=== PATIENT | female | born 1985 | race Caucasian/White ===

== ENCOUNTER 2020-03-27 11:51 | Emergency (ER) | payer SELFPAY ==
[~2020-03-27] VITALS: Ht 167.6 cm; Wt 60.5 kg
[~2020-03-27 11:51] MED LIST: NITR100C62 PO; OMEP20CA5 PO; TRAM50TA PO
--- NOTE | 2020-03-27 12:31 | PHYS DOC ---
Past History Past Medical History: No Pertinent History Past Surgical History: Cholecystectomy, Tubal ligation Alcohol Use: None Drug Use: None General Adult EDM: Chief Complaint: ABDOMINAL PAIN HPI: HPI: History from patient. Patient is a 35-year-old female with a history of tubal ligation and cholecystectomy who presents with complaint of right lower quadrant abdominal discomfort. States the pain started in her umbilical pain 5 days ago. States pain began gradually. She does have abdominal distention. Notes normal stools. Denies vaginal bleeding or discharge. Denies any urinary symptoms. States the pain seems to be located in her umbilical region right lower quadrant at this time. States pain is sharp in nature. States it is intermittent. Denies any exacerbating or alleviating factors. Does note nausea developing today without vomiting. Denies any history of ovarian cancer or tumors. Denies any vaginal bleeding or discharge. States first day of last period was 2 weeks ago. Denies history of colonoscopy. No other complaints. Review of Systems: Review of Systems: Constitutional: Denies fever or chills Eyes: Denies change in visual acuity HENT: Denies nasal congestion or sore throat Respiratory: Denies cough or shortness of breath Cardiovascular: Denies chest pain or edema GI: Positive for abdominal pain no nausea : Denies dysuria Musculoskeletal: Denies back pain or joint pain Integument: Denies rash Neurologic: Denies headache, focal weakness or sensory changes Endocrine: Denies polyuria or polydipsia Lymphatic: Denies swollen glands Psychiatric: Denies depression or anxiety Allergies: Allergies: Allergies Coded Allergies Type Severity Reaction Last Updated Verified No Known Drug Allergies 08/19/15 No Physical Exam: PE: Constitutional: Well developed, well nourished, no acute distress, non-toxic appearance. [] HENT: Normocephalic, atraumatic, bilateral external ears normal, oropharynx moist, no oral exudates, nose normal. [] Eyes: PERRLA, EOMI, conjunctiva normal, no discharge. [] Neck: Normal range of motion, no tenderness, supple, no stridor. [] Cardiovascular:Heart rate regular rhythm, no murmur [] Lungs & Thorax: Bilateral breath sounds clear to auscultation [] Abdomen: Involuntary guarding noted on palpation of the right lower quadrant. Palpable mass noted. No rigidity appreciated. Skin: Warm, dry, no erythema, no rash. [] Back: No tenderness, no CVA tenderness. [] Extremities: No tenderness, no cyanosis, no clubbing, ROM intact, no edema. [] Neurologic: Alert and oriented X 3, normal motor function, normal sensory function, no focal deficits noted. [] Psychologic: Affect normal, judgement normal, mood normal. [] Current Patient Data: Labs: Laboratory Tests Test 03/27/20 12:32 03/27/20 12:51 03/27/20 12:53 White Blood Count 5.8 x10^3/uL Red Blood Count 4.86 x10^6/uL Hemoglobin 13.2 g/dL Hematocrit 40.2 % Mean Corpuscular Volume 83 fL Mean Corpuscular Hemoglobin 27 pg Mean Corpuscular Hemoglobin Concent 33 g/dL Red Cell Distribution Width 13.4 % Platelet Count 208 x10^3/uL Neutrophils (%) (Auto) 76 % Lymphocytes (%) (Auto) 15 % Monocytes (%) (Auto) 7 % Eosinophils (%) (Auto) 1 % Basophils (%) (Auto) 1 % Neutrophils # (Auto) 4.4 x10^3uL Lymphocytes # (Auto) 0.9 x10^3/uL Monocytes # (Auto) 0.4 x10^3/uL Eosinophils # (Auto) 0.0 x10^3/uL Basophils # (Auto) 0.0 x10^3/uL Sodium Level 135 mmol/L Potassium Level 3.8 mmol/L Chloride Level 102 mmol/L Carbon Dioxide Level 26 mmol/L Anion Gap 7 Blood Urea Nitrogen 11 mg/dL Creatinine 0.7 mg/dL Estimated GFR (Cockcroft-Gault) 95.2 BUN/Creatinine Ratio 16 Glucose Level 97 mg/dL Calcium Level 8.7 mg/dL Total Bilirubin 0.5 mg/dL Aspartate Amino Transf (AST/SGOT) 23 U/L Alanine Aminotransferase (ALT/SGPT) 26 U/L Alkaline Phosphatase 100 U/L Total Protein 7.1 g/dL Albumin 3.2 g/dL Albumin/Globulin Ratio 0.8 Lipase 75 U/L Urine Collection Type Void Urine Color Yellow Urine Clarity Clear Urine pH 6.0 Urine Specific Friendly >=1.030 Urine Protein 30 mg/dl Urine Glucose (UA) Neg mg/dL Urine Ketones (Stick) 15 mg/dL Urine Blood Neg Urine Nitrite Pos Urine Bilirubin Neg Urine Urobilinogen Dipstick 1.0 mg/dL Urine Leukocyte Esterase Neg Bedside Urine HCG, Qualitative hcg negative Current Medications Medications (Trade) Dose Ordered Sig/Tiffany Route PRN Reason Start Time Stop Time Status Last Admin Dose Admin Metoclopramide HCl (Reglan Vial) 10 mg 1X ONCE IVP 03/27/20 12:45 03/27/20 12:46 DC 03/27/20 12:47 Morphine Sulfate (Morphine 4mg Syringe) 4 mg 1X ONCE IV 03/27/20 12:45 03/27/20 12:46 DC 03/27/20 12:48 Iohexol (Omnipaque 300 Mg/ml) 75 ml 1X ONCE IV 03/27/20 13:15 03/27/20 13:16 DC 03/27/20 13:40 Info (Do NOT chart on this entry -- for MONITORING) 1 each PRN DAILY PRN MC SEE COMMENTS 03/27/20 13:15 03/29/20 13:14 Cefazolin Sodium 1 gm/Sodium Chloride 50 ml @ 100 mls/hr 1X ONCE IV 03/27/20 14:00 03/27/20 14:29 DC 03/27/20 13:56 Sodium Chloride 50 ml @ As Directed STK-MED ONCE .ROUTE 03/27/20 13:51 03/27/20 13:52 DC Cefazolin Sodium (Ancef) 1 gm STK-MED ONCE .ROUTE 03/27/20 13:51 03/27/20 13:52 DC Vital Signs: Vital Signs Date Time Temp Pulse Resp B/P (MAP) Pulse Ox O2 Delivery O2 Flow Rate FiO2 03/27/20 12:12 98.2 89 18 129/84 (99) 98 Room Air EKG: EKG: [] Radiology/Procedures: Radiology/Procedures: [address] [address] IMAGING REPORT Signed PATIENT: RIVAS HOYOS ACCOUNT: [id number] : 1985 LOCATION: ER AGE: 35 SEX: F EXAM STATUS: REG ER ORD. PHYSICIAN: GARY MOJICA DO REASON: RLQ pain PROCEDURE: CT CHEST ABD PELVIS W/CONTRAST CT chest, abdomen and pelvis with contrast PQRS statement: CT scans at this facility use dose reduction including either automated exposure control, iterative reconstructions, and /or weight based radiation dosing via mA and kV modification when appropriate to reduce radiation dose to as low as reasonably achievable. Contrast: 80 mL Isovue-370 intravenous contrast HISTORY: Right lower quadrant abdominal pain. Chest findings: Mild residual thymus gland density anterior mediastinum. Heart size normal. Aorta, pulmonary vessels and esophagus are unremarkable. No enlarged adenopathy in the chest. Small dependent pleural effusions lung bases. Trachea and bronchi are unremarkable. Mild dependent lower lobe atelectasis and mild volume loss from the pleural effusions. No pulmonary consolidation. Bones are unremarkable. Abdomen findings: Mild dilation of the bile ducts typical after cholecystectomy. There is a 1 cm ill-defined hypodense lesion left hepatic lobe image 16 which is stable favoring a benign lesion most likely a hemangioma given stability. Similar hypodense lesion liver dome too small to characterize favoring benign lesions which are stable likely hemangiomas. Spleen, pancreas, adrenal glands and kidneys are unremarkable. Massive complex abdominal and pelvic adnexal mass with numerous internal septations and density from areas of hyperdense fluid or solid tumor components, measures 27 cm craniocaudal by 23 cm transverse by 13 cm AP, which displaces and compresses bowel loops within the abdomen as well as compresses the aorta and IVC along the spine. Large volume of stool likely constipation. Appendix is not visualized likely obscured by collapse surrounding bowel loops. There is a small volume of pelvic free fluid at the right paracolic gutter and at the lower quadrants surrounding the adnexal mass. No adenopathy. Pelvis findings: Fallopian tube ligation clips. No normal right ovary evident likely replaced by the large mass. At the left ovary there is a 1.5 cm ring-enhancing lesion. There is mild pelvic free fluid. Bladder collapsed. Retroverted uterus. Rectum and bones are unremarkable. IMPRESSION: 1. 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 There is a small volume of free fluid at the pelvis and at the right lower quadrant abdomen, at the paracolic gutter and underlying the right diaphragm which could be reactive free fluid or could indicate mild fluid from early peritoneal metastatic disease, although no peritoneal masses or nodules are evident. See above. 2. Small pleural effusions. 3. 1.5 cm ring-enhancing lesion of the left ovary. Electronically signed by: Stevie Dick MD (03/27/2020 2:19 PM) [id number] DICTATED AND SIGNED BY: STEVIE DICK MD DATE: 03/27/20 1419 CC: AILYN RODGERS; GARY MOJICA DO ~MTH0 0 [] Heart Score: Risk Factors: Risk Factors: DM, Current or recent (<one month) smoker, HTN, HLP, family history of CAD, obesity. Risk Scores: Score 0 - 3: 2.5% MACE over next 6 weeks - Discharge Home Score 4 - 6: 20.3% MACE over next 6 weeks - Admit for Clinical Observation Score 7 - 10: 72.7% MACE over next 6 weeks - Early Invasive Strategies Course & Med Decision Making: Course & Med Decision Making Pertinent Labs and Imaging studies reviewed. (See chart for details) [] Patient is a 35-year-old female who presents with chief complaint abdominal pain and distention. Distal vital signs unremarkable. Palpable mass noted on exam particularly in the right lower quadrant. CAT scan imaging reveals a large masslike structure measuring approximate 23 cm x 23 cm. Presumed origin of the right ovary. Unclear whether is malignancy versus cyst. Per chart review patient did have an ultrasound 2015 where she did have a cystic lesion identified to her right ovary measuring 7 x 7 cm. She did not receive notification follow-up at that time she states. Patient has remained hemodynamically stable. Labs are unremarkable. Fortunately we do not have gynecologic oncologic services at our facility. She will require transfer for further evaluation. I did discuss case with Dr. Wilson's who is excepted the patient at [facility]. Daniel Disclaimer: Daniel Disclaimer: This electronic medical record was generated, in whole or in part, using a voice recognition dictation system. Departure Departure: Impression: Primary Impression: Abdominal mass, right lower quadrant Disposition: 02 DC/TRF OTHER SHORT TERM HOS Condition: STABLE Referrals: PCPAILYN (PCP) GARY MOJICA DO Mar 27, 2020 12:31
[2020-03-27] MEDS ORDERED: METOCLOPRAMIDE HCL 10 MG/2 ML VIAL. IVP ONE (12:45)
[2020-03-27] MEDS ORDERED: MORPHINE SULFATE 4 MG/ML DISP.SYRIN. IV ONE (12:45)
[2020-03-27 12:53] LABS: BASO % 1 % (0-3); EOS % 1 % (0-3); HEMATOCRIT 40.2 % (36.0-47.0); HEMOGLOBIN 13.2 g/dL (12.0-15.5); LYMPH # 0.9 x10^3/uL (1.0-4.8); LYMPH % 15 % (24-48); MEAN CORPUSCULAR HEMOGLOBIN 27 pg (25-35); MEAN CORPUSCULAR HGB CONC 33 g/dL (31-37); MEAN CORPUSCULAR VOLUME 83 fL (79-100); MONO # 0.4 x10^3/uL (0.0-1.1); MONO % 7 % (0-9); NEUT # 4.4 x10^3uL (1.8-7.7); NEUT % 76 % (31-73); PLATELET COUNT 208 x10^3/uL (140-400); RED BLOOD COUNT 4.86 x10^6/uL (3.50-5.40); RED CELL DISTRIBUTION WIDTH 13.4 % (11.5-14.5); WHITE BLOOD COUNT 5.8 x10^3/uL (4.0-11.0)
[2020-03-27 13:09] LABS: CALCIUM 8.7 mg/dL (8.5-10.1); CREATININE 0.7 mg/dL (0.6-1.0); GFR 95.2; POTASSIUM 3.8 mmol/L (3.5-5.1)
[2020-03-27 13:14] LABS: ALBUMIN 3.2 g/dL (3.4-5.0); ALBUMIN/GLOBULIN RATIO 0.8 (1.0-1.7); TOTAL BILIRUBIN 0.5 mg/dL (0.2-1.0); TOTAL PROTEIN 7.1 g/dL (6.4-8.2)
[2020-03-27] MEDS ORDERED: IOHEXOL 300 MG/ML 75 ML VIAL. IV ONE (13:15)
[2020-03-27] MEDS ORDERED: CONTRAST GIVEN. MC PRN (13:15)
[2020-03-27 13:45] LABS: BILIRUBIN,URINE NEG (NEG); CLARITY,URINE CLEAR; COLOR,URINE YELLOW; GLUCOSE,URINE NEG (NEG); NITRITE,URINE POS (NEG)
[2020-03-27] MEDS ORDERED: ceFAZolin SODIUM 1 GM VIAL ONE (13:51)
[2020-03-27] MEDS ORDERED: IV NORMAL SALINE 50ML 50 ML ONE (13:51)
--- NOTE | 2020-03-27 14:22 | RAD ---
CT chest, abdomen and pelvis with contrast PQRS statement: CT scans at this facility use dose reduction including either automated exposure control, iterative reconstructions, and /or weight based radiation dosing via mA and kV modification when appropriate to reduce radiation dose to as low as reasonably achievable. Contrast: 80 mL Isovue-370 intravenous contrast HISTORY: Right lower quadrant abdominal pain. Chest findings: Mild residual thymus gland density anterior mediastinum. Heart size normal. Aorta, pulmonary vessels and esophagus are unremarkable. No enlarged adenopathy in the chest. Small dependent pleural effusions lung bases. Trachea and bronchi are unremarkable. Mild dependent lower lobe atelectasis and mild volume loss from the pleural effusions. No pulmonary consolidation. Bones are unremarkable. Abdomen findings: Mild dilation of the bile ducts typical after cholecystectomy. There is a 1 cm ill-defined hypodense lesion left hepatic lobe image 16 which is stable favoring a benign lesion most likely a hemangioma given stability. Similar hypodense lesion liver dome too small to characterize favoring benign lesions which are stable likely hemangiomas. Spleen, pancreas, adrenal glands and kidneys are unremarkable. Massive complex abdominal and pelvic adnexal mass with numerous internal septations and density from areas of hyperdense fluid or solid tumor components, measures 27 cm craniocaudal by 23 cm transverse by 13 cm AP, which displaces and compresses bowel loops within the abdomen as well as compresses the aorta and IVC along the spine. Large volume of stool likely constipation. Appendix is not visualized likely obscured by collapse surrounding bowel loops. There is a small volume of pelvic free fluid at the right paracolic gutter and at the lower quadrants surrounding the adnexal mass. No adenopathy. Pelvis findings: Fallopian tube ligation clips. No normal right ovary evident likely replaced by the large mass. At the left ovary there is a 1.5 cm ring-enhancing lesion. There is mild pelvic free fluid. Bladder collapsed. Retroverted uterus. Rectum and bones are unremarkable. IMPRESSION: 1. 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 There is a small volume of free fluid at the pelvis and at the right lower quadrant abdomen, at the paracolic gutter and underlying the right diaphragm which could be reactive free fluid or could indicate mild fluid from early peritoneal metastatic disease, although no peritoneal masses or nodules are evident. See above. 2. Small pleural effusions. 3. 1.5 cm ring-enhancing lesion of the left ovary. Electronically signed by: Santos Dick MD (03/27/2020 2:19 PM) [id number]
[2020-03-27 16:45] VITALS: BP 125/74
[2020-03-27] MEDS ORDERED: ONDANSETRON PF 4 MG/2 ML VIAL. IVP ONE (17:30)
[2020-03-27] MEDS ORDERED: MORPHINE SULFATE 4 MG/ML DISP.SYRIN. IV PRN (17:30)
[2020-03-27] MEDS ORDERED: ONDANSETRON PF 4 MG/2 ML VIAL. ONE (17:33)
[2020-03-27] MEDS ORDERED: MORPHINE SULFATE 4 MG/ML DISP.SYRIN. ONE (17:33)
== END 2020-03-27 18:33 | disposition short-term general hospital (02) ==
LOC: ER 11:51
DX: R10.31 Right lower quadrant pain (principal); R14.0 Abdominal distension (gaseous); Z98.51 Tubal ligation status; Z90.49 Acquired absence of other specified parts of digestive tract
CPT/HCPCS: 36415; 71260; 74177; 80053; 81003; 81025; 83690; 85025; 96365; 96375; 99285; J0690; J2270; J2405; J2765; Q9967

== ENCOUNTER 2020-05-22 12:05 | Emergency (ER) | payer SELFPAY ==
[~2020-05-22] VITALS: Ht 167.6 cm; Wt 65.0 kg
--- NOTE | 2020-05-22 12:18 | PHYS DOC ---
Past History Past Medical History: No Pertinent History Past Surgical History: Cholecystectomy, Tubal ligation Alcohol Use: None Drug Use: None Adult General Chief Complaint Chief Complaint: ABDOMINAL PAIN [facility] HPI Patient is a 35-year-old female presents emergency department complaining of low pelvic pain and vaginal pain after sex 30 minutes prior to arrival. Patient states she did not have rough sex. Patient rates her pain a 10/10 pain on a 1- 10 pain scale. Patient states she had a abdominal hysterectomy on 03/29/2020 at [facility] related to an ovarian cyst. Patient reports vaginal bleeding however has not soaked any OB pads yet. Patient complains of nausea. Denies vomiting or diarrhea or constipation. Patient states she was put on a lift restriction for 4 weeks however denies being put on a refrain from sex restriction. Patient states she has had a cholecystectomy and a tubal ligation in the past. She denies any other surgeries, denies taking prescription or [id number] medications at home, denies allergies to medications. Patient denies any other physical complaints or physical concerns. Patient is cigarette smoker, denies alcohol abuse, denies illicit drug use. Review of Systems Review of Systems 14 body systems of review of systems have been reviewed. See HPI for pertinent positives and negative responses, otherwise all other systems are negative, nonpertinent or noncontributory. Allergies Allergies Allergies Coded Allergies Type Severity Reaction Last Updated Verified No Known Drug Allergies 08/19/15 No Physical Exam Physical Exam Constitutional: Well developed, well nourished, no acute distress, non-toxic appearance. HENT: Normocephalic, atraumatic, bilateral external ears normal, oropharynx moist, no oral exudates, nose normal. Eyes: PERRLA, EOMI, conjunctiva normal, no discharge. Neck: Normal range of motion, no tenderness, supple, no stridor. Cardiovascular:Heart rate regular rhythm, no murmur, heart sounds S1-S2 no auscultation. Lungs & Thorax: Bilateral breath sounds clear to auscultation, all lung marrero consultation. Abdomen: Bowel sounds normal, soft, no masses, no pulsatile masses. Midline abdominal surgical scar without signs of infectious process. Pain to palpation low pelvic region. Skin: Warm, dry, no erythema, no rash. Back: No tenderness, no CVA tenderness. Extremities: No tenderness, no cyanosis, no clubbing, ROM intact, no edema. Neurologic: Alert and oriented X 3, normal motor function, normal sensory function, no focal deficits noted. Psychologic: Affect normal, judgement normal, mood normal. : External pelvic exam within normal limits, no lesions appreciated no swelling noted. Speculum exam noted approximately 20 cc serosanguineous fluid with moderate sized clot which was removed with several OB vaginal swabs revealing a vaginal cuff tear with approximately 2.0 cm x 0.5 cm tear with blood clot at opening. Bimanual examination deferred Current Patient Data Lab Results Laboratory Tests Test 05/22/20 13:00 White Blood Count 7.8 x10^3/uL Red Blood Count 5.11 x10^6/uL Hemoglobin 13.4 g/dL Hematocrit 41.0 % Mean Corpuscular Volume 80 fL Mean Corpuscular Hemoglobin 26 pg Mean Corpuscular Hemoglobin Concent 33 g/dL Red Cell Distribution Width 14.4 % Platelet Count 161 x10^3/uL Neutrophils (%) (Auto) 83 % Lymphocytes (%) (Auto) 13 % Monocytes (%) (Auto) 3 % Eosinophils (%) (Auto) 1 % Basophils (%) (Auto) 1 % Neutrophils # (Auto) 6.5 x10^3uL Lymphocytes # (Auto) 1.0 x10^3/uL Monocytes # (Auto) 0.2 x10^3/uL Eosinophils # (Auto) 0.1 x10^3/uL Basophils # (Auto) 0.0 x10^3/uL Sodium Level 138 mmol/L Potassium Level 3.8 mmol/L Chloride Level 105 mmol/L Carbon Dioxide Level 24 mmol/L Anion Gap 9 Blood Urea Nitrogen 13 mg/dL Creatinine 0.6 mg/dL Estimated GFR (Cockcroft-Gault) 113.8 BUN/Creatinine Ratio 22 Glucose Level 104 mg/dL Calcium Level 8.1 mg/dL Total Bilirubin 0.3 mg/dL Aspartate Amino Transf (AST/SGOT) 12 U/L Alanine Aminotransferase (ALT/SGPT) 15 U/L Alkaline Phosphatase 52 U/L Total Protein 6.5 g/dL Albumin 3.3 g/dL Albumin/Globulin Ratio 1.0 Current Medications Medications (Trade) Dose Ordered Sig/Tiffany Route PRN Reason Start Time Stop Time Status Last Admin Dose Admin Sodium Chloride 1,000 ml @ 1,000 mls/hr 1X ONCE IV 05/22/20 12:30 05/22/20 13:29 DC 05/22/20 12:37 Fentanyl Citrate (Fentanyl 2ml Vial) 50 mcg 1X ONCE IVP 05/22/20 12:30 05/22/20 12:31 DC 05/22/20 12:38 Ondansetron HCl (Zofran) 4 mg 1X ONCE IVP 05/22/20 12:45 05/22/20 12:52 DC 05/22/20 12:46 Ondansetron HCl (Zofran) 4 mg STK-MED ONCE .ROUTE 05/22/20 12:44 05/22/20 12:44 DC Fentanyl Citrate (Fentanyl 2ml Vial) 50 mcg 1X ONCE IVP 05/22/20 13:30 05/22/20 13:34 DC 05/22/20 13:35 EKG EKG [] Radiology/Procedures Radiology/Procedures [] Heart Score Risk Factors: Risk Factors: DM, Current or recent (<one month) smoker, HTN, HLP, family history of CAD, obesity. Risk Scores: Risk Factors: DM, Current or recent (<one month) smoker, HTN, HLP, family history of CAD, obesity. Course & Med Decision Making Course & Med Decision Making Pertinent Labs and Imaging studies reviewed. (See chart for details) 35-year-old female, vital signs reviewed, presented to the emergency department approximately 30 minutes after vaginal sex with a complaint of vaginal bleeding. With patient recent history of abdominal hysterectomy on 03/29/2020, ED work- up started. Saline lock, CBC, CMP, 1 L normal saline, 50 mcg fentanyl IV for a 10/10 pain, 4 mg IV Zofran for nausea. Patient was given an additional 50 mcg of fentanyl IV for a 7/10 pain. Vaginal speculum exam revealed tear at vaginal cuff. Related to patient's recent surgery at [facility] by [facility] Dr. Cathi Jama, [facility] transfer center was contacted for patient transfer and evaluation by [employer] specialist. Transfer center sales team leader stated either OB specialist or hospitalist will return call soon. Time is currently 1330. At 1435 contacted [facility] transfer center, patient will be transferred to [facility] as direct admit observation to room 401 with a diagnosis of traumatic vaginal laceration, the patient is excepted by [employer] specialist Dr. Cathi Jama. Unable to give direct provider to provider patient report related to Dr. Jama currently in surgery. Advised patient of need to transfer to [facility] for evaluation of OB specialist, patient is amenable to this transfer plan. ED nurse report given by ED nurse Nahomy Herron RN to [facility] MedSurg nurse TERRY RN. EMTALA transfer form signed by ED attending physician Dr. Arias. Reexamination of the patient, pain currently 3/10 on a 1-10 pain scale, patient is stable for transfer for to [facility] by [facility]. At [address] Dr[address] Brewster returned phone call for provider to provider report, patient is n.p.o. status nothing to eat since yesterday evening approximately 2100, last drink a Mountain Dew approximately 7 hours ago. Dragon Disclaimer Dragon Disclaimer This electronic medical record was generated, in whole or in part, using a voice recognition dictation system. Departure Departure: Impression: Primary Impression: Traumatic vaginal laceration Disposition: 02 DC/TRF OTHER SHORT TERM HOS (Patient transferred to [facility], accepted by [facility] specialist Dr. Cathi Jama) Condition: STABLE Referrals: PCP,NO (PCP) Problem Qualifiers Primary Impression: Traumatic vaginal laceration Encounter type: initial encounter Qualified Codes: S31.41XA - Laceration without foreign body of vagina and vulva, initial encounter CRISTY NDIAYE APRN May 22, 2020 12:18
[2020-05-22] MEDS ORDERED: IV NORMAL SALINE 1,000ML 1,000 ML IV ONE (12:30)
[2020-05-22] MEDS ORDERED: ONDANSETRON PF 4 MG/2 ML VIAL. ONE (12:44)
[2020-05-22] MEDS ORDERED: ONDANSETRON PF 4 MG/2 ML VIAL. IVP ONE (12:45)
[2020-05-22 13:12] LABS: BASO % 1 % (0-3); EOS # 0.1 x10^3/uL (0.0-0.7); EOS % 1 % (0-3); HEMOGLOBIN 13.4 g/dL (12.0-15.5); LYMPH % 13 % (24-48); MEAN CORPUSCULAR HEMOGLOBIN 26 pg (25-35); MEAN CORPUSCULAR HGB CONC 33 g/dL (31-37); MEAN CORPUSCULAR VOLUME 80 fL (79-100); MONO # 0.2 x10^3/uL (0.0-1.1); MONO % 3 % (0-9); NEUT # 6.5 x10^3uL (1.8-7.7); NEUT % 83 % (31-73); PLATELET COUNT 161 x10^3/uL (140-400); RED BLOOD COUNT 5.11 x10^6/uL (3.50-5.40); RED CELL DISTRIBUTION WIDTH 14.4 % (11.5-14.5); WHITE BLOOD COUNT 7.8 x10^3/uL (4.0-11.0)
[2020-05-22 13:24] LABS: CALCIUM 8.1 mg/dL (8.5-10.1); CREATININE 0.6 mg/dL (0.6-1.0); GFR 113.8; POTASSIUM 3.8 mmol/L (3.5-5.1)
[2020-05-22 13:27] LABS: ALBUMIN 3.3 g/dL (3.4-5.0); TOTAL BILIRUBIN 0.3 mg/dL (0.2-1.0); TOTAL PROTEIN 6.5 g/dL (6.4-8.2)
[2020-05-22 14:54] VITALS: BP 100/57
== END 2020-05-22 15:11 | disposition short-term general hospital (02) ==
LOC: ER 12:05
DX: S31.41XA Laceration without foreign body of vagina and vulva, initial encounter (principal); R11.0 Nausea; Z90.49 Acquired absence of other specified parts of digestive tract; Z98.51 Tubal ligation status; Z90.710 Acquired absence of both cervix and uterus; Y08.89XA Assault by other specified means, initial encounter; Y93.89 Activity, other specified; Y92.89 Other specified places as the place of occurrence of the external cause; Y99.8 Other external cause status
CPT/HCPCS: 36415; 80053; 85025; 96361; 96374; 96375; 96376; 99285; J2405; J3010; J7030